=== PATIENT | male | born 1995 | race Caucasian/White ===

== ENCOUNTER 2025-11-15 23:09 | Emergency (ER) | payer OTHER, SELFPAY ==
[2025-11-15 23:17] VITALS: BP 104/64
[2025-11-15 23:28] VITALS: BMI 26.6
[2025-11-15 23:56] LABS: Hematocrit 42.2 % (39.0-52.0); Hemoglobin 15.1 g/dL (13.0-18.0); Mean Corp Hgb Conc. 35.8 g/dL (33.0-37.0); Mean Corpuscular Volume 82.9 fL (80.0-94.0); Nucleated Red Blood Cells % 0 % (-); Platelet Count 207 10^3/uL (130-400); Red Cell Dist. Width 12.6 % (11.5-14.5)
[2025-11-16] VITALS: BP 103/69
[2025-11-16 00:05] LABS: ALT (SGPT) 40 U/L (0-50); AST (SGOT) 33 U/L (17-59); Albumin 4.6 g/dl (3.5-5.0); Alkaline Phosphatase 82 U/L (38-126); Blood Urea Nitrogen 8 mg/dl (9-20); Calcium 9.0 mg/dl (8.4-10.2); Carbon Dioxide 24 mmol/L (22-30); Chloride 104 mmol/L (98-107); Estimated Creatinine Clearance > 125 ml/min; Glucose 120 mg/dl (70-99); Potassium 3.6 mmol/L (3.5-5.1); Sodium 137 mmol/L (135-145); Total Protein 7.8 g/dl (6.3-8.2); eGFR > 60.00
--- NOTE | 2025-11-16 00:32 | ED.GENMED ---
History of Present Illness
General
Chief Complaint: Fainting/Passed Out
Source: patient
Exam Limitations: none
Time Seen by Provider: 11/16/25 00:19
Nursing documentation reviewed up to this point in time: agreed with
History of Present Illness
History of Present Illness:
Note:
CHIEF COMPLAINT(S)
Syncope and facial trauma.
HISTORY OF PRESENT ILLNESS
The patient is a 29-year-old male who experienced a syncope episode while in the bathroom. The episode started approximately five minutes after a bowel movement, during which time the patient reported feeling an overwhelming warm sensation and
subsequently lost consciousness. The patient was found on the bathroom floor by family members and had fainted, possibly hitting his head and right cheek on a ceramic sink during the episode. After regaining consciousness, the patient reported
severe nausea and transient confusion, but symptoms improved after vomiting while en route to the hospital. The patient has a history of similar vagal-type episodes as experienced by his father and suspects a vagal reaction related to the pressure
changes during bowel movements. He has chronic migraine, generalized anxiety disorder, and obsessive-compulsive disorder.
PAST MEDICAL AND SURIGICAL HISTORY
The patient has a history of chronic migraines, generalized anxiety disorder, and obsessive-compulsive disorder. He has undergone varicocele surgery on the left testicle and endoscopic sinus surgery on the upper right sinus.
CHRONIC MEDICAL CONDITIONS SIGNIFICANTLY AFFECTING CARE
Chronic migraines, generalized anxiety disorder, and obsessive-compulsive disorder.
SOCIAL DETERMINANTS AFFECTING HEALTH
The patients father has a similar history of syncope episodes.
PHYSICAL EXAM
General: Alert, no acute distress, though noted facial trauma.
Skin: Warm, dry. forehead laceration, well approximated 1 cm
Head: Evidence of trauma, likely contusion from falling. Normocephalic, atraumatic otherwise.
Neck: Supple, trachea midline.
Eyes, Ears, Nose, Mouth and Throat: Oral mucosa moist. Evidence of trauma to right cheekbone.
Cardiovascular: Normal peripheral perfusion, No edema.
Respiratory: Respirations are non-labored.
Gastrointestinal: Abdomen nondistended
Back: Normal range of motion, Normal alignment.
Musculoskeletal: Normal ROM, normal strength.
Neurological: Alert and oriented to person, place, time, and situation, No focal neurological deficit observed.
Psychiatric: Cooperative, appropriate mood & affect.
PLAN
A CT scan of the head will be conducted to assess for potential fractures due to the head trauma. Consideration of wound closure using medical adhesive glue for facial laceration. Recommend follow-up with the primary care physician for further
evaluation of syncope episodes and preventive strategies. Maintain hydration and avoid straining during bowel movements.
DIFFERENTIAL DIAGNOSIS
The Differential Diagnosis includes, in no particular order and is not limited to:
1. Vasovagal syncope
2. Orthostatic hypotension
3. Cardiac arrhythmia
4. Seizure disorder
5. Hypoglycemia
6. Dehydration
7. Intestinal obstruction
8. Cerebrovascular accident
9. Anxiety or panic disorder
10. Migraine-related syncope
CARE-UPDATE
11/16/25 - 02:[address] head and face; no acute findings observed. 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 Patient remains stable and is cleared for discharge.
Forehead laceration repaired with Dermabond.
EKG
My independent EKG interpretation is:
- Time of EKG: Not provided
- Rhythm: Normal sinus rhythm
- Heart Rate: 68 bpm
- [place] Interval: Normal
- QRS Duration: Normal
- QT Interval: Normal
- [place]: Normal
- ST Segment: Normal
- Abnormalities: None observed
Disposition:
SUMMARY OF ENCOUNTER
The patient, a 29-year-old male presented to the emergency department after experiencing a syncope episode in the bathroom, which led to a fall and facial trauma. The syncope occurred approximately five minutes post-bowel movement, suspected to be a
vagal reaction similar to previous episodes and familial history. Upon regaining consciousness, he experienced severe nausea and transient confusion which resolved after vomiting. The emergency department management included a CT scan of the head to
evaluate potential fractures due to head trauma. 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 The forehead laceration was treated with Dermabond adhesive.
DISPOSITION
Discharge.
ASSESSMENT
Vasovagal syncope and forehead laceration.
PLAN
Recommend avoiding situations that may induce similar syncopal episodes, such as straining during bowel movements. Ensure adequate hydration and follow up with a primary care physician for further evaluation and prevention strategies for syncope.
The forehead laceration has been treated with medical adhesive, and no further treatment is necessary unless signs of infection occur.
INDEPENDENT REVIEW OF LABS AND INTERPRETATION OF TESTS
- My independent CT scan interpretation indicates no acute fracture or intracranial pathology. A cavernoma in the right temporal lobe is present as noted on prior imaging.
PATIENT EDUCATION AND COUNSELING
The patient was advised to remain hydrated, avoid straining during bowel movements, and monitor for any new or worsening symptoms. Education on recognizing pre-syncope symptoms was provided.
FOLLOW-UP INSTRUCTIONS
Schedule a follow-up visit with the primary care physician to explore preventive measures for syncope. Call to schedule an appointment promptly.
MEDICATION RECONCILIATION
No new medications were prescribed during the visit.
MEDICAL DECISION MAKING
- Number and Complexity of Problems Addressed: Chronic conditions affecting care include chronic migraines, generalized anxiety disorder, and obsessive-compulsive disorder with potential syncope due to vagal reaction and new forehead laceration.
Differential diagnosis includes vasovagal syncope, orthostatic hypotension, cardiac arrhythmia, seizure disorder, hypoglycemia, dehydration, intestinal obstruction, cerebrovascular accident, anxiety or panic disorder, and migraine-related syncope.
- Data:
Category 1
- My independent interpretation of the EKG is normal sinus rhythm, heart rate 68 bpm, no abnormalities observed.
- Non-emergency department records reviewed include a thorough history of chronic conditions and familial patterns.
Category 3
- Discussion of management occurred with the radiologist regarding the CT findings and cavernomas stability.
- Risk: Consideration of Admission/Observation: Escalation of care including admission/observation was considered given the complexity and risk of the patients presenting complaint, exam findings, and/or their underlying comorbidities. However,
ultimately I feel the patient is safe for outpatient management with close follow-up. Reasoning: Work-up reassuring, does not reveal any acute life/organ-threatening processes, patients symptoms well-controlled upon reevaluation, reexamination is
reassuring, vitals are stable, patient agreeable with discharge, reliable for follow-up.
DIAGNOSIS
- Vasovagal syncope (ICD-10: R55)
- Forehead laceration (ICD-10: S01.81)
Past History
Past History
ED Past Medical History: None
Social History
Tobacco: Non-smoker
Alcohol: Occasional
Drug: None
Personal: Single
Employment: Student
Phy Exam
Physical Exam
Physical Exam:
.
Course
Orders/Labs/Results
Orders:
Orders
11/15/25 23:19
Ondansetron Injectable [Zofran] 4 mg .ROUTE .STK-MED ONE
11/15/25 23:33
Electrocardiogram (*1) Urgent
Reason for Study: Syncope
EKG- Treatment ONCE
11/15/25 23:41
CMP [Comprehensive Metabolic Panel] Urgent
Complete Blood Count/With Diff Urgent
11/16/25 00:[address]
CT Facial Bones W/o Iv Contras Urgent
Reason For Exam: syncope, +LOC, hit head on sink, R cheek swelling
CT Head W/o Iv Contrast Urgent
Reason For Exam: syncope, +LOC, hit head on sink, R eyebrow lac
Abnormal Lab Results
11/15/25
23:41
Absolute Lymphs (auto) 1.1 L 10^3/uL
(1.2-3.4)
Absolute Monos (auto) 0.8 H 10^3/uL
(0.1-0.6)
Lymphocytes % 15.2 L %
(20.5-51.1)
Monocytes % 10.3 H %
(1.7-9.3)
BUN 8 L mg/dl
(9-20)
Glucose 120 H mg/dl
(70-99)
11/15/25 23:41
11/15/25 23:41
Vital Signs
Initial and Last Documented VS:
Initial Vital Signs
Temp Pulse Resp BP Pulse Ox
97.8 F 69 18 104/64 100
11/15/25 23:17 11/15/25 23:17 11/15/25 23:17 11/15/25 23:17 11/15/25 23:17
Last Documented Vital Signs
Temp Pulse Resp BP Pulse Ox
97.8 F 68 18 109/69 98
11/15/25 23:17 11/16/25 02:30 11/15/25 23:17 11/16/25 02:00 11/16/25 02:30
Procedures
Laceration Closure
Right Forehead:
Status of Wound: clean
Size of Wound in cm: 1
Description of Wound Edges: sharp
Preparation: cleaned with saline
Revision/Debridement: routine- no revision
Wound exploration: explored to base- no FB
Type of Closure: Dermabond-skin glue
*Pulse Oximetry
SaO2: 98
Oxygen Mode of Delivery: Room air
Patient hypoxic: no
*Critical Care Note
Total Time (30-74mins, 75-104mins- exclusive of procedures): Not Applicable
ED Attending Note
-
Portions of this chart may have been created with voice recognition software.� Occasional wrong word or��sound alike� substitutions may have occurred due to the inherent limitations of voice recognition software.
Discharge Plan
Departure
Patient Disposition: Home (Routine Discharge)
Date of Disposition: 11/16/25
Time of Disposition: 02:40
Patient with high blood pressure during this ER visit?: No
Condition: Good
Discharge Problem:
Syncope, vasovagal, Forehead laceration
Instructions: Syncope (Fainting) (DC)
Prescriptions:
No Action
ondansetron [Zofran ODT] 8 MG tablet,disintegrating
8 mg PO Q8H Qty: 12 0RF
Referrals:
Elsi Sanchez MD [Family Provider, Internal Medicine] - Call in 1-3 days for appt
Interventions
Interventions:
*General Assessment Last Done: 11/15/25 23:29
*Neglect/Abuse Screening Last Done: 11/15/25 23:29
*ED COVID-19 Vaccine History Last Done: 11/15/25 23:29
*ED Influenza Vaccine History Last Done: 11/15/25 23:29
[facility] Risk Assessment Tool Last Done: 11/15/25 23:30
*Risk Screen - Suicide (C-SSRS) Last Done: 11/15/25 23:29
ED- Cardiac Assessment Last Done: 11/15/25 23:30
ED- Neurological Assessment Last Done: 11/15/25 23:30
Discharge Date and Time
Print Language: DUTCH
[2025-11-16 01:00] VITALS: BP 109/68
[2025-11-16 02:00] VITALS: BP 109/69
== END 2025-11-16 03:06 | disposition home or self-care (01) ==
LOC: EMR 23:09
PROVIDERS: EMERGENCY PHYSICIAN Emergency Medicine; FAMILY PHYSICIAN Internal Medicine
DX: R55 Syncope and collapse (principal); S01.81XA Laceration without foreign body of other part of head, initial encounter; W18.39XA Other fall on same level, initial encounter; Y92.002 Bathroom of unspecified non-institutional (private) residence as the place of occurrence of the external cause; G43.709 Chronic migraine without aura, not intractable, without status migrainosus; F41.1 Generalized anxiety disorder; F42.9 Obsessive-compulsive disorder, unspecified
CPT/HCPCS: 99284; 12011; 70450; 70486; 80053; 85025; 93005